=== PATIENT | female | born 1955 | race Caucasian/White ===

== ENCOUNTER 2021-02-16 11:47 | Emergency (ER) | payer OTHER ==
[2021-02-16 13:06] LABS: BASOPHIL 0.5 % (0-2); EOSINOPHIL 2.7 % (0-7); HCT 40.5 % (37.0-47.0); LYMPHOCYTE 18.1 % (15-48); MCHC 32.1 g/dL (32.0-36.0); MCV 87.3 fL (78.0-100.0); MONOCYTE 7.8 % (0-12); MPV 11.5 fL (6.0-9.5); NEUTROPHIL 70.7 % (41-80); NRBC 0; PLT 219 K/uL (150-400); RBC 4.64 M/uL (4.20-5.40); RDW 14.2 % (11.5-14.0); WBC 8.1 K/uL (4.0-10.5)
[2021-02-16 13:11] LABS: INR 0.91 (0.9-1.2); PROTHROMBIN TIME 11.7 SECONDS (11.8-13.4)
[2021-02-16 13:12] LABS: PTT 31.3 SECONDS (24.4-34.7)
[2021-02-16 13:20] LABS: ALBUMIN 3.6 g/dL (3.4-5.0); BILIRUBIN - TOTAL 0.6 mg/dL (0.2-1.0); BUN/CREAT RATIO (CALC) 22.1 RATIO; CREATININE 0.77 mg/dL (0.51-0.95); GLOBULIN (CALCULATION) 3.1 g/dL; POTASSIUM 4.6 mmol/L (3.5-5.1); TOTAL PROTEIN 6.7 g/dL (6.4-8.2)
== END 2021-02-16 14:45 | disposition home or self-care (01) ==
LOC: FER 11:47
PROVIDERS: Internal Medicine
DX: R07.89 Other chest pain (principal); Z88.5 Allergy status to narcotic agent
CPT/HCPCS: 36415; 71045; 80053; 84484; 85025; 85610; 85730; 93005